=== PATIENT | female | born 1940 | race Caucasian/White ===

== ENCOUNTER 2017-11-11 17:12 | Inpatient (IN) | payer MEDICARE ==
[2017-11-11 18:33] LABS: ADD MAN DIFF? NO
[2017-11-11 18:35] LABS: BASO # 0.1 x10^3/uL (0.0-0.2); BASO % 1 % (0-3); EOS # 0.2 x10^3/uL (0.0-0.7); EOS % 3 % (0-3); HEMATOCRIT 37.4 % (36.0-47.0); HEMOGLOBIN 12.8 g/dL (12.0-15.5); LYMPH # 1.6 x10^3/uL (1.0-4.8); LYMPH % 30 % (24-48); MEAN CORPUSCULAR HEMOGLOBIN 30 pg (25-35); MEAN CORPUSCULAR HGB CONC 34 g/dL (31-37); MEAN CORPUSCULAR VOLUME 86 fL (79-100); MONO # 0.4 x10^3/uL (0.0-1.1); MONO % 8 % (0-9); NEUT # 3.1 x10^3uL (1.8-7.7); NEUT % 58 % (31-73); PLATELET COUNT 194 x10^3/uL (140-400); RED BLOOD COUNT 4.33 x10^6/uL (3.50-5.40); RED CELL DISTRIBUTION WIDTH 14.2 % (11.5-14.5); WHITE BLOOD COUNT 5.4 x10^3/uL (4.0-11.0)
[2017-11-11 18:46] LABS: ANION GAP 7 (6-14); BLOOD UREA NITROGEN 20 mg/dL (7-20); CALCIUM 8.8 mg/dL (8.5-10.1); CARBON DIOXIDE 28 mmol/L (21-32); CHLORIDE 108 mmol/L (98-107); CREATININE 0.9 mg/dL (0.6-1.0); GFR 60.9; GLUCOSE 130 mg/dL (70-99); POTASSIUM 4.2 mmol/L (3.5-5.1); SODIUM 143 mmol/L (136-145)
[2017-11-11 18:56] LABS: INR 1.1 (0.8-1.1); PARTIAL THROMBOPLASTIN TIME 32 SEC (24-38); PROTHROMBIN TIME PATIENT 13.3 SEC (11.7-14.0)
[2017-11-11 19:00] LABS: TROPONINI < 0.017 ng/mL (0.000-0.055)
[2017-11-11] MEDS: IOHEXOL 300 MG/ML 100ML VIAL. IV (19:00)
[2017-11-11 19:01] LABS: MAGNESIUM 1.9 mg/dL (1.8-2.4)
[2017-11-11 19:06] LABS: CKMB MASS 0.8 ng/mL (0.0-3.6); CREATINE KINASE 20 U/L (26-192)
[2017-11-11] MEDS ORDERED: CONTRAST GIVEN. MC (19:15)
[2017-11-11] MEDS: IV NORMAL SALINE 1000ML BAG 1,000 ML IV (19:25)
[2017-11-11] MEDS: FAMOTIDINE 20 MG/2 ML VIAL IVP (19:25)
[2017-11-11] MEDS: diphenhydrAMINE 50 MG/ML VIAL IVP (19:25)
[2017-11-11] MEDS: DEXAMETHASONE SOD PHOS 20 MG/5 ML VIAL. IV (19:26)
[2017-11-11] MEDS ORDERED: fentaNYL PF VIAL 100 MCG/2 ML VIAL IV (21:00)
[2017-11-11] MEDS ORDERED: ONDANSETRON PF 4 MG/2 ML VIAL. IV (21:00)
[2017-11-11] MEDS ORDERED: KETAMINE HCL 500 MG/10 ML VIAL. IV (21:00)
[2017-11-11 23:58] LABS: TROPONINI < 0.017 ng/mL (0.000-0.055)
[2017-11-12 06:03] LABS: TROPONINI < 0.017 ng/mL (0.000-0.055)
[2017-11-12 08:03] LABS: POC GLUCOSE 253 mg/dL (70-99)
[2017-11-12 08:14] LABS: CHOLESTEROL 213 mg/dL (0-200); HDLC 44 mg/dL (40-60); LDLC 155 mg/dL (0-100); NON-HDL CHOLESTEROL 169 mg/dL (0-129); TRIGLYCERIDES 72 mg/dL (0-150); VLDLC 14 mg/dL (0-40)
[2017-11-12 08:17] LABS: CHOLESTEROL/HDL RATIO 4.8
[2017-11-12 08:22] LABS: THYROID STIM HORMONE (TSH) 1.449 uIU/mL (0.358-3.74)
[2017-11-12] MEDS ORDERED: NITROGLYCERIN SUBLINGUAL 0.4 MG BOTTLE OF 25. SL (08:45)
[2017-11-12] MEDS ORDERED: ACETAMINOPHEN 500 MG TABLET PO (08:45)
[2017-11-12] MEDS ORDERED: ONDANSETRON PF 4 MG/2 ML VIAL. IV (08:45)
[2017-11-12] MEDS ORDERED: [UNRECOGNIZED DRUG - OTHER] PO (08:45)
[2017-11-12] MEDS ORDERED: SIMETHICONE 80 MG TAB.CHEW PO (08:45)
[2017-11-12] MEDS ORDERED: POLYVINYL ALCOHOL 1.4% OPHTH SOLUTION 15ML BOTTLE. OU (09:15)
[2017-11-12] MEDS ORDERED: hydrALAZINE 20 MG/ML VIAL. IVP (10:00)
[2017-11-12] MEDS: POLYVINYL ALCOHOL 1.4% OPHTH SOLUTION 15ML BOTTLE. OU ×2 (10:00→14:00)
[2017-11-12] MEDS: ACETAMINOPHEN 325 MG TABLET. PO (11:07)
[2017-11-12] MEDS: LOSARTAN POTASSIUM 50 MG TABLET. PO (11:08)
[2017-11-12] MEDS: SENNOSIDES 8.6 MG TABLET PO (11:08)
[2017-11-12] MEDS: ASPIRIN CHEWABLE 81 MG TABLET. PO (11:08)
[2017-11-12] MEDS: CITALOPRAM 20 MG TABLET. PO (11:09)
[2017-11-12] MEDS: PANTOPRAZOLE 40 MG TABLET.DR. PO (11:09)
[2017-11-12 11:13] LABS: POC GLUCOSE 244 mg/dL (70-99)
[2017-11-12] MEDS: hydroCHLOROthiazide 12.5 MG CAPSULE PO (11:30)
[2017-11-12] MEDS ORDERED: DEXTROSE 50% 25 GM / 50ML DISP.SYRIN. IV (12:30)
[2017-11-12] MEDS: INSULIN LISPRO 300 UNITS/3 ML INSULN.PEN. SQ ×2 (13:03→17:00)
[2017-11-12 17:27] LABS: POC GLUCOSE 165 mg/dL (70-99)
[2017-11-12] MEDS ORDERED: ATORVASTATIN CALCIUM 20 MG TABLET PO (21:00)
[2017-11-12] MEDS ORDERED: INSULIN GLARGINE 300 UNITS/3 ML INSULN.PEN. SQ (21:00)
[2017-11-13 00:15] LABS: HEMOGLOBIN A1C 6.5 % (4.8-5.6)
[2017-11-13] MEDS ORDERED: hydroCHLOROthiazide 12.5 MG CAPSULE PO (09:00)
[2017-11-13] MEDS ORDERED: LOSARTAN POTASSIUM 50 MG TABLET. PO (09:00)
[2017-11-13 09:19] LABS: MRSA BY PCR Negative (Negative)
== END 2017-11-12 18:46 | DRG 313 ==
LOC: ER 17:12 → 2 SOUTH 20:45
DX: R07.89 Other chest pain (principal); I10 Essential (primary) hypertension; F32.9 Major depressive disorder, single episode, unspecified; F20.9 Schizophrenia, unspecified; M19.90 Unspecified osteoarthritis, unspecified site; I25.10 Atherosclerotic heart disease of native coronary artery without angina pectoris; Z66 Do not resuscitate; E78.5 Hyperlipidemia, unspecified; Z82.49 Family history of ischemic heart disease and other diseases of the circulatory system; F41.9 Anxiety disorder, unspecified; M48.02 Spinal stenosis, cervical region; M54.12 Radiculopathy, cervical region; K21.9 Gastro-esophageal reflux disease without esophagitis; D86.9 Sarcoidosis, unspecified; E11.9 Type 2 diabetes mellitus without complications; Z90.49 Acquired absence of other specified parts of digestive tract; Z90.710 Acquired absence of both cervix and uterus; Z85.43 Personal history of malignant neoplasm of ovary; Z95.5 Presence of coronary angioplasty implant and graft; Z86.718 Personal history of other venous thrombosis and embolism; Z79.899 Other long term (current) drug therapy; Z79.01 Long term (current) use of anticoagulants; Z85.51 Personal history of malignant neoplasm of bladder; Z88.6 Allergy status to analgesic agent; Z88.1 Allergy status to other antibiotic agents; Z91.041 Radiographic dye allergy status; Z91.011 Allergy to milk products; Z91.013 Allergy to seafood; Z88.8 Allergy status to other drugs, medicaments and biological substances; Z91.018 Allergy to other foods; Z88.9 Allergy status to unspecified drugs, medicaments and biological substances; Z91.5 Personal history of self-harm
CPT/HCPCS: 36415; 71046; 71275; 80048; 80061; 82553; 82962; 83036; 83735; 84443; 84484; 85025; 85610; 85730; 87641; 93005; 93306; 96361; 96374; 96375; 97162-GP; 97166-GO; 99285-25; J1100; J1200; J1815; J7030; Q9967; S0028

== ENCOUNTER 2019-09-09 17:32 | Emergency (ER) | payer OTHER, MEDICARE ==
[~2019-09-09] VITALS: Ht 172.7 cm; Wt 94.0 kg
[~2019-09-09 17:32] MED LIST: ACET325T9 PO; ASPI81TA59 PO; CITA20TA9 PO; DOXY1TAB2 PO; INSU100I13 SQ; NITR0.4T22 SL; OMEP20CA16 PO; PROP1DRO6 OP; SENN-182 PO; SIME80TA14 PO
[2019-09-09 18:56] LABS: BASO # 0.1 x10^3/uL (0.0-0.2); BASO % 2 % (0-3); EOS # 0.1 x10^3/uL (0.0-0.7); EOS % 3 % (0-3); HEMOGLOBIN 11.8 g/dL (12.0-15.5); LYMPH # 1.9 x10^3/uL (1.0-4.8); LYMPH % 41 % (24-48); MEAN CORPUSCULAR HEMOGLOBIN 30 pg (25-35); MEAN CORPUSCULAR HGB CONC 34 g/dL (31-37); MEAN CORPUSCULAR VOLUME 89 fL (79-100); MONO # 0.3 x10^3/uL (0.0-1.1); MONO % 6 % (0-9); NEUT # 2.2 x10^3/uL (1.8-7.7); NEUT % 48 % (31-73); PLATELET COUNT 152 x10^3/uL (140-400); RED BLOOD COUNT 3.94 x10^6/uL (3.50-5.40); RED CELL DISTRIBUTION WIDTH 16.1 % (11.5-14.5); WHITE BLOOD COUNT 4.5 x10^3/uL (4.0-11.0)
--- NOTE | 2019-09-09 18:56 | PHYS DOC ---
Past Medical History Past Medical History: Cancer, Depression, Diabetes-Type II, DVT, Schizophrenia Additional Past Medical Histor: OSTEOARTHRITIS Past Surgical History: Appendectomy, Cholecystectomy, Hysterectomy Additional Past Surgical Histo: BACK x 3, NECK X 2; OVARIAN CA; Smoking Status: Never Smoker Alcohol Use: None Drug Use: None General Adult EDM: Chief Complaint: SHORTNESS OF BREATH HPI: HPI: Patient is a 79 year old female who presents with complaint of cough and shortness of breath that has been getting worse over the last few days. Patient states that just getting up and making her bed has got her completely winded. She denies any chest pain. Patient states that this morning when she woke up she felt pretty foggy feeling disoriented. She denies any lateralizing weakness or speech deficits. [] Review of Systems: Review of Systems: Constitutional: Denies fever or chills. [] Respiratory: Complains of cough and shortness of breath. [] Cardiovascular: Denies chest pain or edema. [] GI: Denies abdominal pain, nausea, vomiting or diarrhea. [] Neurologic: Denies headache, focal weakness or sensory changes. [] A full 10 point review of systems has been reviewed and is otherwise negative. Heart Score: Risk Factors: Risk Factors: DM, Current or recent (<one month) smoker, HTN, HLP, family history of CAD, obesity. Risk Scores: Score 0 - 3: 2.5% MACE over next 6 weeks - Discharge Home Score 4 - 6: 20.3% MACE over next 6 weeks - Admit for Clinical Observation Score 7 - 10: 72.7% MACE over next 6 weeks - Early Invasive Strategies Allergies: Allergies: Allergies Coded Allergies Type Severity Reaction Last Updated Verified iodine Allergy Severe 11/11/17 Yes Beta-Blockers (Beta-Adrenergic Bloc Allergy Intermediate 11/11/17 Yes Kkxzlfj-Kqg-Teh Reductase Inhibitor Allergy Intermediate 11/11/17 Yes amlodipine Allergy Intermediate 11/11/17 Yes aspirin Allergy Intermediate 11/11/17 Yes blueberry Allergy Intermediate 11/11/17 Yes budesonide Allergy Intermediate 11/11/17 Yes chocolate flavor Allergy Intermediate 11/11/17 Yes ciprofloxacin Allergy Intermediate 11/11/17 Yes cranberry Allergy Intermediate 11/11/17 Yes diltiazem Allergy Intermediate 11/11/17 Yes enoxaparin Allergy Intermediate 11/11/17 Yes fluoxetine Allergy Intermediate 11/11/17 Yes folic acid Allergy Intermediate 11/11/17 Yes furosemide Allergy Intermediate 11/11/17 Yes glucose Allergy Intermediate 11/11/17 Yes herbal complex no.190 Allergy Intermediate 11/11/17 Yes hydrochlorothiazide Allergy Intermediate 11/11/17 Yes iron Allergy Intermediate 11/11/17 Yes latex Allergy Intermediate 11/11/17 Yes lisinopril Allergy Intermediate 11/11/17 Yes lubiprostone Allergy Intermediate 11/11/17 Yes metoprolol Allergy Intermediate 11/11/17 Yes milk Allergy Intermediate 11/11/17 Yes multivitamin with minerals Allergy Intermediate 11/11/17 Yes naproxen Allergy Intermediate 11/11/17 Yes niacin Allergy Intermediate 11/11/17 Yes pregabalin Allergy Intermediate 11/11/17 Yes pyridoxine Allergy Intermediate 11/11/17 Yes shellfish derived Allergy Intermediate 11/11/17 Yes soy Allergy Intermediate 11/11/17 Yes thiamine (vitamin B1) Allergy Intermediate 11/11/17 Yes trazodone Allergy Intermediate 11/11/17 Yes wheat Allergy Intermediate 11/11/17 Yes wheat dextrin Allergy Intermediate 11/11/17 Yes Uncoded Allergies Type Severity Reaction Last Updated Verified reductase Allergy Unknown 11/11/17 Physical Exam: PE: Constitutional: Well developed, well nourished, no acute distress, non-toxic appearance. [] HENT: Normocephalic, atraumatic, bilateral external ears normal, oropharynx moist, no oral exudates, nose normal. [] Eyes: PERRLA, EOMI, conjunctiva normal, no discharge. [] Neck: Normal range of motion, no tenderness, supple, no stridor. [] Cardiovascular: Regular rate and rhythm [] Lungs & Thorax: Bilateral breath sounds clear to auscultation [] Abdomen: Bowel sounds normal, soft, no tenderness. [] Skin: Warm, dry, no erythema, no rash. [] Extremities: No tenderness, no cyanosis, no clubbing, ROM intact. [] Neurologic: Alert and oriented X 3, no focal deficits noted. [] Current Patient Data: Vital Signs: Vital Signs Date Time Temp Pulse Resp B/P (MAP) Pulse Ox O2 Delivery O2 Flow Rate FiO2 09/09/19 17:52 98.5 72 24 161/75 (103) 98 Room Air 98.5 EKG: EKG: EKG demonstrates normal sinus rhythm with rate of 74. [] Radiology/Procedures: Radiology/Procedures: [] Course & Med Decision Making: Course & Med Decision Making Pertinent Labs and Imaging studies reviewed. (See chart for details) [] Dragon Disclaimer: Dragon Disclaimer: This electronic medical record was generated, in whole or in part, using a voice recognition dictation system. Departure Departure Impression: Primary Impression: Acute bronchitis Qualified Codes: J20.9 - Acute bronchitis, unspecified Additional Impression: Yeast infection Disposition: HOME, SELF-CARE Condition: STABLE Referrals: NO PCP (PCP) Patient Instructions: Acute Bronchitis, Vaginitis, Monilial Scripts Azithromycin (ZITHROMAX) 250 Mg Tablet 1 PKG PO UD, #6 TAB Prov: BONNIE RAO Jr. DO 09/09/19 BONNIE RAO Jr. DO September 09, 2019 18:56
[2019-09-09 19:06] LABS: CALCIUM 8.5 mg/dL (8.5-10.1); CREATININE 1.2 mg/dL (0.6-1.0); GFR 43.4; POTASSIUM 4.5 mmol/L (3.5-5.1)
[2019-09-09 19:11] LABS: ALBUMIN 3.1 g/dL (3.4-5.0); TOTAL BILIRUBIN 0.3 mg/dL (0.2-1.0); TOTAL PROTEIN 6.3 g/dL (6.4-8.2)
--- NOTE | 2019-09-09 19:14 | RAD ---
AP chest. HISTORY: Dyspnea AP view was taken of the chest. Patient's taken a poor inspiration. There is linear atelectasis in the left lung. There are no other confluent infiltrates. There is calcifications from a chondroid lesion in the left humerus without change from the old study. IMPRESSION: 1. Linear atelectasis left lung. 2. No other acute infiltrates. Electronically signed by: Nagi Page MD (09/09/2019 7:11 PM) [facility]
[2019-09-09 20:20] LABS: BILIRUBIN,URINE NEGATIVE (NEG); CLARITY,URINE CLEAR; COLOR,URINE YELLOW; NITRITE,URINE NEGATIVE (NEG); PH,URINE 5.5 (<5.0-8.0); PROTEIN,URINE NEGATIVE (NEG-TRACE); UROBILINOGEN,URINE 0.2 mg/dL (0.2 mg/dL)
[2019-09-09 20:28] LABS: BACTERIA,URINE 0 /HPF (0-FEW); RBC,URINE 0 /HPF (0-2); SQUAMOUS EPITHELIAL CELL,UR MOD /LPF; WBC,URINE TNTC /HPF (0-4); YEAST,URINE PRESENT /HPF
[2019-09-09] MEDS ORDERED: AZIT250T PO (20:39)
[2019-09-09] MEDS ORDERED: FLUCONAZOLE 100 MG TABLET. PO ONE (21:15)
[2019-09-09 23:45] VITALS: BP 165/80
--- NOTE | 2019-09-10 10:22 | EKG ---
[facility] [address] [place] [address] Test Date: 2019-09-09 Test Time: 17:49:16 Pat Name: MANISH GALDAMEZ Department: Room: Gender: F [employer] Operator: : 1940 Requested By: BONNIE RAO Order Number: [id number] Reading MD: Mode Pace MD Measurements Intervals Hilliards Rate: 74 P: 0 FL: 146 QRS: 12 QRSD: 72 T: 38 QT: 400 QTc: 444 Interpretive Statements SINUS RHYTHM Electronically Signed On 09-11-2019 12:22:11 CDT by Mode Pace MD
== END 2019-09-10 | disposition home or self-care (01) ==
LOC: ER 17:32
DX: J20.9 Acute bronchitis, unspecified (principal); B37.9 Candidiasis, unspecified; E11.9 Type 2 diabetes mellitus without complications; F20.9 Schizophrenia, unspecified; Z86.718 Personal history of other venous thrombosis and embolism; Z88.1 Allergy status to other antibiotic agents; Z91.041 Radiographic dye allergy status; Z91.040 Latex allergy status; Z88.5 Allergy status to narcotic agent; Z88.6 Allergy status to analgesic agent; Z88.8 Allergy status to other drugs, medicaments and biological substances; Z91.011 Allergy to milk products; Z91.013 Allergy to seafood; Z91.018 Allergy to other foods
CPT/HCPCS: 36415; 71045; 80053; 81001; 83880; 84484; 85025; 87086; 93005; 99285-25